=== PATIENT | female | born 1955 | race Caucasian/White ===

== ENCOUNTER 2020-03-08 10:14 | Emergency (ER) | payer OTHER, SELFPAY ==
--- NOTE | ~2020-03-08 | XR_ITS ---
EXAMINATION: XR shoulder LT min 2V EXAM DATE: 03/08/2020 10:45 INDICATION: Pain in joint, no injury, pain for 3days . TECHNIQUE: The following left shoulder projections obtained: frontal projection with internal rotatio n, frontal projection with external rotation, Grashey, and axillary (4+ views). There is no prior st udy for comparison. FINDINGS: No evidence of left shoulder rotator cuff calcific tendinosis. There is moderate acromio clavicular joint primary osteoarthritis. There are no acute fractures or dislocations identified. Th ere is no subcutaneous gas. The soft tissue is unremarkable. There are no radiopaque foreign vipul s. IMPRESSION: Moderate left acromioclavicular joint osteoarthritis. Reviewed, dictated and finalized at location A. OIL PUMP OPERATOR
--- NOTE | 2020-03-08 10:21 | ED.GENADULT ---
HPI - General Adult General Chief complaint: Extremity Problem,Nontraumatic Stated complaint: left shoulder pain Time Seen by Provider: 03/08/20 10:20 Source: patient Mode of arrival: ambulatory Limitations: no limitations History of Present Illness HPI narrative: 64 y/o female. PMH includes: HTN. Presents to [facility] clinic today with acute complaints of LT shoulder pain, ongoing for past 72 hours. She describes dull aching pain worsening with left shoulder movement or exertion. Intermittently radiates to LT scapula. No chest pain or dyspnea. This patient reports a 'normal stress test' just 1 year ago . No acute falls, trauma, or injury relayed. No tingling, numbness, or paraesthesia. No weakness. Pain is mildly improved with home OTC remedies and resting. No additional acute complaints relayed upon PE. Related Data Home Medications Medication Instructions Recorded Confirmed aspirin [Aspirin Low-Strength] 81 mg PO DAILY 03/08/20 03/08/20 olmesartan [Benicar] 20 mg PO DAILY 03/08/20 03/08/20 Allergies Allergy/AdvReac Type Severity Reaction Status Date / Time acetaminophen Allergy Rash Verified 03/08/20 10:58 [From Darvocet-N] propoxyphene Allergy Rash Verified 03/08/20 10:58 [From Darvocet-N] tramadol [From Ultram] Allergy Rash Verified 03/08/20 10:58 Review of Systems Review of Systems: Narrative: CONSTITUTIONAL: Denies fever, chills, sweats. EYES: Denies visual changes, redness, discharge. ENT: Denies rhinorrhea, congestion, sore throat, otalgia. CARDIOVASCULAR: Denies chest pain, palpitations, edema. RESPIRATORY: Denies dyspnea, wheezing, cough GASTROINTESTINAL: Denies abdominal pain, nausea, vomiting, diarrhea. GENITOURINARY: Denies dysuria, hematuria, abnormal discharge SKIN: Denies rash or itching. MUSCULOSKELETAL: Positive LT shoulder pain. Denies acute back pain, or myalgia. NEUROLOGIC: Denies numbness, or focal weakness. PSYCHIATRIC: Denies anxiety or depression. All systems reviewed & are unremarkable except as noted in HPI and below (HPI. ) PMFSH Comments At the time of my signature I agree with nursing past medical history, surgical, social, and family history. There is no relevant family history pertinent to the presenting complaint. Exam Narrative: Exam Narrative: GENERAL: This is a well-nourished, well-developed patient, in no apparent distress. HEAD: normocephalic, atraumatic. EYES: PERRL. Sclera clear/white. Vision is grossly intact. EARS: External ears normal, auditory canals clear and without drainage, TMs normal without perforation. Hearing grossly intact. NOSE: External nose normal with no obvious nasal discharge, nares without redness, no rhinorrhea. THROAT: Mucous membranes moist, posterior pharynx clear. NECK: Neck supple, non-tender without lymphadenopathy, masses or thyromegaly. CARDIOVASCULAR: Regular rate and rhythm without murmurs, gallops, or rubs. Pulses LUE are intact, strong. RESPIRATORY: Clear to auscultation. Breath sounds equal bilaterally. No wheezes, rales, or rhonchi. GASTROINTESTINAL: Abdomen soft, non-tender, nondistended. Bowel sounds are active. No hepato-splenomegaly, or palpable masses. No guarding. SKIN: warm, intact with no suspicious lesions or rash, good texture and turgor. NEURO: awake, alert, and oriented to person, place and time. There were no obvious focal neurologic abnormalities. Sensation LUE is preserved, all sites tested. Gait steady. EXTREMITIES: Normal range of motion LUE. No obvious deformity. No surface trauma, ecchymosis, or crepitus. No erythema, warmth, or swelling to palpitation. There is mils tenderness with palpation over the AC joint. Nontender to palpate over the clavicle, scapula, or humeral head. Nontender to palpations of the bicipital groove or soft tissue. Nontender to palpation of of the muscles. No pain or limitation with active or passive abduction/abduction, internal, external rotation, flexion/extension. Negative empty c
[2020-03-08 10:51] VITALS: BP 152/82; PULSE 82; RESP 20; TEMP 36; O2SAT 98
--- NOTE | 2020-03-08 11:06 | ECG_ITS ---
Measurements Intervals [place] Rate: 76 P: 67 MO: 166 QRS: -40 QRSD: 110 T: 30 QT: 364 QTc: 411 Interpretive Statements SINUS RHYTHM LEFT AXIS DEVIATION INTRAVENTRICULAR CONDUCTION DELAY DELAYED PRECORDIAL R/S TRANSITION BASELINE ARTIFACT- II, III, AVR, AVL, AVF BORDERLINE ECG Electronically Signed On 03-08-2020 11:14:06 HAND STRIPER by Jonathan Abdi D.O.
== END 2020-03-08 11:24 | disposition home or self-care (01) ==
PROVIDERS: Emergency Provider Nurse Practitioner Adult Health
DX: M19.012 Primary osteoarthritis, left shoulder (principal); I10 Essential (primary) hypertension; Z96.651 Presence of right artificial knee joint
CPT/HCPCS: 73030; 93005; 99203; G0463

== ENCOUNTER 2020-04-09 14:50 | Emergency (ER) | payer OTHER, SELFPAY ==
[2020-04-09 15:04] VITALS: BP 152/79; PULSE 80; RESP 20; TEMP 36.6; O2SAT 99
--- NOTE | 2020-04-09 15:09 | ED.DIZZY ---
HPI - Dizziness General Chief Complaint: Dizziness Stated Complaint: dizziness Source: patient Mode of arrival: ambulatory Limitations: no limitations History of Present Illness HPI Narrative: Patient is a 64-year-old female who presents complaining of dizziness this a.m. Patient reports awaking this morning feeling lightheaded and slightly dizzy. She reports same symptoms that she had when she was diagnosed with dehydration in the past. Patient also reporting dysuria. She reports drinking 2 bottles of wine around water and a bottle of Gatorade. She reports symptoms have resolved at this time. Patient here just to get checked. She denies all other complaints at this time. She denies known exposure to Covid. She denies fever, chest pain or shortness of breath. MD elicited complaint: lightheadedness Related Data Home Medications Medication Instructions Recorded Confirmed aspirin [Aspirin Low-Strength] 81 mg PO DAILY 03/08/20 04/09/20 olmesartan [Benicar] 20 mg PO DAILY 03/08/20 04/09/20 Allergies Allergy/AdvReac Type Severity Reaction Status Date / Time acetaminophen Allergy Rash Verified 03/08/20 10:58 [From Darvocet-N] propoxyphene Allergy Rash Verified 03/08/20 10:58 [From Darvocet-N] tramadol [From Ultram] Allergy Rash Verified 03/08/20 10:58 Review of Systems Review of Systems: Narrative: CONSTITUTIONAL: Denies fever, chills, or sweats. EYES: Denies visual changes, redness, or discharge. ENT: Denies rhinorrhea, congestion, sore throat, or otalgia. CARDIOVASCULAR: Denies chest pain, palpitations, or edema. RESPIRATORY: Denies cough or dyspnea. GASTROINTESTINAL: Denies abdominal pain, nausea, vomiting, or diarrhea. GENITOURINARY: reports dysuria SKIN: Denies rash or itching. MUSCULOSKELETAL: Denies back pain, joint pain, or myalgia. NEUROLOGIC: Denies headache, reports slight headache symptoms which have resolved PSYCHIATRIC: Denies anxiety or depression. [facility] Past Medical History Medical History (Updated 04/09/20 @ 15:23 by NEO Watters) HTN (hypertension) Surgical History Surgical History (Updated 04/09/20 @ 15:12 by NEO Watters) No significant past surgical history Family History Family History (Updated 04/09/20 @ 15:11 by NEO Watters) Other No significant family history Social History Social History (Updated 04/09/20 @ 15:12 by NEO Watters) Smoking status: Never smoker Tobacco type: cigarettes Alcohol intake: never Substance use: never Gender identity (if verbalized by the patient): Female Exam Narrative: Exam Narrative: GENERAL: Well-appearing, well-nourished, and in no acute distress. HEAD: Normocephalic, atraumatic. EYES: EOMI. No redness or drainage. ENT: Mucous membranes pink and moist. CHEST: No respiratory distress. HEART: Regular rate and rhythm. MUSCULOSKELETAL: No bony tenderness. EXTREMITIES: Normal range of motion. SKIN: Warm, dry, no rash. NEURO: No focal deficits. Alert and oriented x3. Gait steady. PSYCH: Normal affect. No signs of depression or anxiety. Course Vital Signs Vital signs: Vital Signs Temperature 36.6 C 04/09/20 15:04 Pulse Rate 80 04/09/20 15:04 Respiratory Rate 20 04/09/20 15:04 Blood Pressure 152/79 H 04/09/20 15:04 Pulse Oximetry 99 04/09/20 15:04 Temperature 36.6 C 04/09/20 15:04 Pulse Rate 80 04/09/20 15:04 Respiratory Rate 20 04/09/20 15:04 Blood Pressure 152/79 H 04/09/20 15:04 Pulse Oximetry 99 04/09/20 15:04 Critical Care Time Critical Care Time Critical Care Time: No Discharge Plan Discharge Clinical Impression: Intermittent lightheadedness UTI (urinary tract infection) Qualifiers: Urinary tract infection type: site unspecified Hematuria presence: without hematuria Qualified Code(s): N39.0 - Urinary tract infection, site not specified Patient Disposition: Home, Self-Care Condition: Stable Instructions
== END 2020-04-09 15:35 | disposition home or self-care (01) ==
PROVIDERS: Emergency Provider Nurse Practitioner
DX: R42 Dizziness and giddiness (principal); N39.0 Urinary tract infection, site not specified; I10 Essential (primary) hypertension
CPT/HCPCS: 81003; 87086; 99213; G0463

== ENCOUNTER 2021-11-29 13:20 | Emergency (ER) | payer OTHER, SELFPAY ==
[2021-11-29 13:36] VITALS: BP 152/89; PULSE 79; RESP 20; TEMP 36.2; O2SAT 97
--- NOTE | 2021-11-29 13:48 | ED.URI ---
HPI - URI/Sore Throat General Chief Complaint: Upper Respiratory Infection Stated Complaint: Coughing Time Seen by Provider: 11/29/21 13:48 Source: patient, RN notes reviewed and old records reviewed Mode of arrival: ambulatory Limitations: no limitations History of Present Illness HPI Narrative: 65-year-old female who presents to [facility] with complaints of 1 week duration of productive cough with sinus drainage also. Patient denies any known fevers, chills, or sweats, denies any body aches. Patient was diagnosed with polycythemia vera last year and this year she was diagnosed with Parkinsonism and does have a cane to assist with ambulation. Patient reports that she has not taken anything OTC because she is concerned of any OTC medications interacting with her medication. Patient denies any shortness of breath or any noted wheezing, no tachypnea noted,loose sounding cough noted. Patient has been vaccinated for COVID did not have Booster of flu shot. MD elicited complaint: cough, rhinorrhea and nasal congestion Pertinent past history: immunosuppression Onset (ago): week(s) (1) Description of mucous: yellow and green Able to tolerate fluids by mouth: Yes Associated symptoms: rhinorrhea, nasal congestion, sore throat and cough (productive) Treatments prior to arrival: none Related Data Home Medications Medication Instructions Recorded Confirmed aspirin 81 mg chewable tablet 81 mg PO DAILY 03/08/20 11/29/21 carbidopa 25 mg-levodopa 100 mg 1.5 tablet TID 11/29/21 11/29/21 tablet losartan 50 mg tablet 50 mg DAILY 11/29/21 11/29/21 mirabegron 25 mg tablet,extended 25 mg PO DAILY 11/29/21 11/29/21 release 24 hr (Myrbetriq) paroxetine HCl 10 mg tablet 5 mg PO DAILY 11/29/21 11/29/21 ruxolitinib 5 mg tablet (Jakafi) 5 mg DAILY 11/29/21 11/29/21 Allergies Allergy/AdvReac Type Severity Reaction Status Date / Time codeine Allergy Rash Verified 11/29/21 13:42 propoxyphene Allergy Rash Verified 11/29/21 13:42 [From Darvocet-N] tramadol [From Ultram] Allergy Rash Verified 11/29/21 13:42 Review of Systems Review of Systems: CONSTITUTIONAL: Denies fever, chills, or sweats. EYES: Denies visual changes, redness, or discharge. ENT: Positive for rhinorrhea, congestion, mild sore throat, no otalgia. CARDIOVASCULAR: Denies chest pain, palpitations, or edema. RESPIRATORY: Positive for productive cough denies dyspnea. GASTROINTESTINAL: Denies abdominal pain, nausea, vomiting, or diarrhea. GENITOURINARY: Denies dysuria or hematuria. SKIN: Denies rash or itching. MUSCULOSKELETAL: Denies back pain, joint pain, or myalgia. NEUROLOGIC: Denies headache, numbness, or weakness. PSYCHIATRIC: Positive for anxiety or depression. All systems reviewed & are unremarkable except as noted in HPI and below PMFSH Past Medical History Medical History (Updated 11/29/21 @ 14:11 by Mora Mireles NP) HTN (hypertension) Parkinsonism Polycythemia vera Surgical History Surgical History (Updated 11/29/21 @ 14:28 by Mora Mireles NP) History of right knee joint replacement Family History Family History (Updated 04/09/20 @ 15:11 by Jessica Benavides, WIRE REPAIRER) Other No significant family history Social History Social History (Updated 11/29/21 @ 14:10 by Mora Mireles NP) Social History: second hand tobacco exposure spouse Smoking status: Never smoker Tobacco type: cigarettes Alcohol intake: never Substance use: never Living arrangements: with family Gender identity (if verbalized by the patient): Female Comments At time of signature, agree with nursing past medical, surgical, social and family history. There is no relevant family history pertinent to the presenting complaint Exam Narrative: GENERAL: Frail-appearing, well-nourished, and in no acute distress. HEAD: Normocephalic, atraumatic. EYES: PERRLA and EOMI. ENT: Nares with some redness with clear rhinorrhea no epistaxis. Mucous membranes moist.TM's
== END 2021-11-29 14:21 | disposition home or self-care (01) ==
PROVIDERS: Emergency Provider Registered Nurse
DX: J06.9 Acute upper respiratory infection, unspecified (principal); I10 Essential (primary) hypertension; D45 Polycythemia vera; G20 Parkinson's disease; Z96.651 Presence of right artificial knee joint
CPT/HCPCS: 99213; G0463

== ENCOUNTER 2024-03-31 14:42 | Outpatient (CLI) | payer OTHER, SELFPAY ==
--- NOTE | ~2024-03-31 | XR_ITS ---
XR abdomen/kub 1V Ordering provider: Joe Joyner History: . KIDNEY STONE . Comparison: None. FINDINGS: BOWEL: Fecal material seen in the colon suggestive of constipation. Nonobstructive bowel gas pattern. ORGANOMEGALY: None. SIGNIFICANT PATHOLOGIC CALCIFICATIONS: None. OTHER: No free air is seen under the diaphragm. Levoscoliosis. IMPRESSION: NO ACUTE ABDOMINAL FINDINGS. Constipation. Reviewed, dictated and finalized at location A. INTELLIGENCE OFFICER
== END 2024-03-31 14:43 | disposition home or self-care (01) ==
DX: N20.0 Calculus of kidney (principal); K59.00 Constipation, unspecified
CPT/HCPCS: 74018

== ENCOUNTER 2024-04-25 12:32 | Outpatient (CLI) | payer OTHER, SELFPAY ==
--- NOTE | ~2024-04-25 | CT_ITS ---
EXAMINATION: CT abdomen pelvis wo con DATE: 04/25/2024 13:00 INDICATION: Kidney stone. TECHNIQUE: Computed tomography (CT) of the abdomen and pelvis was performed without intravenous contr ast. Automated exposure control and iterative reconstruction technique were employed. The dose-length product was 352.46 mGy-cm. COMPARISON: None. FINDINGS: The visualized portions of the lung bases demonstrate minimal atelectasis on the left. No p leural effusion. The heart size is normal. No pericardial effusion. There is moderate splenomegaly. T here are peripheral splenic calcifications, likely from old trauma. The liver, gallbladder, pancreas, adrenal glands, and right kidney are normal. There is a 9 mm hemorrhagic cyst in left kidney. There is no urolithiasis. There are no dilated loops of bowel. The appendix is not visualized. There are no pathologically enlarged lymph nodes. There is no free intraperitoneal fluid. There is lumbar levosco liosis and severe lower lumbar spondylosis. There is mild chronic anterior wedging of multiple thorac ic vertebral bodies. There is severe thoracic spondylosis. IMPRESSION: 1. No urolithiasis. 2. Moderate splenomegaly. Reviewed, dictated and finalized at location B. TRONIC CONSOLE DISPLAY OPERATOR
== END 2024-04-25 12:33 | disposition home or self-care (01) ==
LOC: MICIMG 12:34
DX: N20.0 Calculus of kidney (principal); R16.1 Splenomegaly, not elsewhere classified
CPT/HCPCS: 74176

== ENCOUNTER 2024-10-11 09:24 | Outpatient (CLI) | payer OTHER, SELFPAY ==
--- NOTE | 2024-10-11 | ECHO_ITS ---
Patient Info Name: Eliana Avalos Age: 68 years : 1955 Gender: Female Ht: 65 in Wt: 161 lbs BSA: 1.85 m2 HR: 78 bpm BP: 140 / 97 mmHg Technical Quality: Poor Exam Date: 10/11/2024 9:55 AM Patient Status: O Admit Date: 10/11/2024 Exam Type: CA echo dop color flow w con Complete two-dimensional, color flow and Doppler transthoracic echocardiogram is performed with contrast to opacify the left ventricle and to improve the deliniation of the left ventricle endocardial borders. Pension Administrator: Reyna Enamorado Contrast/Agitated Saline Contrast/Ag. Saline: Definity Amount: 2.00 ml Administered By: Reyna Enamorado Existing IV Access: No New IV Access: Left and Outer Forearm Site Condition: IV removed Reason for Poor Study: poor echocardiographic windows Summary 1. Technically very difficult study with very poor and limited acoustic windows. 2. The left ventricle appears to be normal size with moderately reduced systolic function. 3. The right ventricle is normal in size and systolic function. 4. The valves are poorly visualized. Left Ventricle The left ventricle is normal in size with moderately reduced systolic function. The left ventricular ejection fraction is visually estimated to be 35-40%. Right Ventricle The right ventricle is normal in size and systolic function. Left Atria The left atrium is normal size. Right Atria The right atrium is normal size. Atrial Septum The atrial septum is not well visualized. Aortic Valve The aortic valve is not well visualized. There does not appear to be any hemodynamically significant aortic stenosis by echo Doppler parameters. Pulmonic Valve The pulmonic valve is not well visualized. Mitral Valve The mitral valve is sclerotic but opens well. There is no mitral regurgitation. Tricuspid Valve The tricuspid valve is not well visualized. Pericardium/Pleural Pericardium is normal in appearance with no evidence for significant pericardial effusion. Inferior Vena Cava Inferior vena cava is not well visualized. Aorta The aortic root at the level of the sinus of Valsalva measures 2.6 cm in diameter. Left Ventricular Outflow Tract Name Value Normal LVOT 2D LVOT Diameter 1.6 cm LVOT Doppler LVOT Peak Velocity 114 cm/s LVOT Peak Gradient 5 mmHg LVOT Mean Gradient 3 mmHg LVOT VTI 25 cm LVOT Stroke Volume 50 ml LVOT CO 4.0 l/min LVOT CI 2.1 l/min/m2 Pulmonic Valve Name Value Normal RVOT Doppler RVOT Peak Velocity 80 cm/s RVOT Peak Gradient 3 mmHg PV Doppler PV Peak Velocity 105 cm/s PV Peak Gradient 4 mmHg Mitral Valve Name Value Normal MV Doppler MV Peak Gradient 4 mmHg MV Mean Gradient 2 mmHg MV Area (Cont Eq VTI) 2.0 cm2 MV Diastolic Function MV E Peak Velocity 74 cm/s MV A Peak Velocity 93 cm/s MV E/A 0.8 MV Decel Time (PW) 282 ms MV Annular TDI MV E/e' (Septal) 13.1 MV E/e' (Lateral) 7.7 MV E/e' (Average) 10.4 Aortic Valve Name Value Normal AV Doppler AV Peak Velocity 150 cm/s AV Peak Gradient 9 mmHg AV Area (Cont Eq Augie) 1.6 cm2 AV DI (Augie) 0.76 AV Regurgitation 2D LVOT Area 2.1 cm2 Ventricles Name Value Normal LV Dimensions 2D/MM IVS Diastolic Thickness (2D) 1.0 cm 0.6-1.0 LVID Diastole (2D) 4.0 cm 3.8-5.2 LVIW Diastolic Thickness (2D) 1.2 cm 0.6-0.9 LVID Systole (2D) 3.1 cm 2.2-3.5 LVOT Diameter 1.6 cm LV Mass (2D Cubed) 144.76 g 67.00-162.00 LV Mass Index (2D Cubed) 78 g/m2 43-95 Relative Wall Thickness (2D) 0.58 <=0.42 LV Fractional Shortening/Ejection Fraction 2D/MM LV Fractional Shortening (2D) 23 % 27-45 LV EF (2D Teichholz) 47 % LV Diastolic Volume (4C MOD) 77 ml LV EF (4C MOD) 32 % LV Diastolic Volume (2C MOD) 79 ml LV EF (2C MOD) 51 % LV Diastolic Volume (BP MOD) 81 ml 46-106 LV Diastolic Volume Index (BP MOD) 44 ml/m2 29-61 LV Systolic Volume (BP MOD) 45 ml 14-42 LV Systolic Volume Index (BP MOD) 24 ml/m2 8-24 LV EF (BP MOD) 45 % 54-74 LV Diastolic Length (4C) 8.2 cm LV Systolic Length (4C) 7.2 cm LV Stroke Volume (4C MOD) 25 ml Atria Name Value Normal LA Dimensions LA Volume (4C A-L) 41 ml LA Volume (BP A-L) 50 ml RA Dimensions RA Area (4C) 9.8 cm2 <=18.0 Report Signatures
--- OUTSIDE RECORDS SUMMARY | 2024-10-11 09:30 | XMS_ITS | Encounter Summary ---
Author Organization [facility] Address 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 Gender Identity Not on file Sexual Orientation Not on file documented as of this encounter Plan of Treatment Upcoming Encounters Date Type Department Care Team (Late Contact Info) Description 10/27/2024 1:00 PM CDT Office Visit [facility] Oncology and Hematology [facility] [place] [address] [facility] [address] [place] [address] Tiffani Milton, LUMP RECEIVER [address] [facility] [address] [place] [address] 01/23/2025 9:15 AM CDT Office Visit [facility] Neurology [address] [facility] [address] [facility] [address] [place] [address] [place] [address] [facility] [address] [place] [address] documented as of this encounter Visit Diagnoses Diagnosis Gynecological examination- Primary documented in this encounter Care Teams Corn Miller Relationship Specialty [place] [address] [facility] [address] [place] [address] PCP - General Family Practice 06/26/20 documented as of this encounter
--- OUTSIDE RECORDS SUMMARY | 2024-10-11 09:30 | XMS_ITS | Encounter Summary ---
Author Organization [facility] Address 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 Gender Identity Not on file Sexual Orientation Not on file documented as of this encounter Plan of Treatment Upcoming Encounters Date Type Department Care Team (Late st Contact Info) Description 10/27/2024 1:00 PM CDT Office Visit [facility] Oncology and Hematology [facility] [address] [address] Tiffani Milton, PASTRY COOK [address] [facility] [address] [facility] [place] [address] 01/23/2025 9:15 AM CDT Office Visit [facility] Neurology [address] [facility] [place] [address] [address] [place] [address] [address] documented as of this encounter Visit Diagnoses Diagnosis Gynecological examination- Primary documented in this encounter Care Teams Qual Field Manager Relationship Specialty Start [place] [address] [address] [facility] [address] [place] [address] PCP - General Family Practice 06/26/20 documented as of this encounter
--- OUTSIDE RECORDS SUMMARY | 2024-10-11 09:30 | XMS_ITS | Clinical Summary ---
Author Organization [employer] [address] [facility] Address [address] [place] [address] Care Team Providers Care Termite Treater Helper Name Role Phone Jitendra Puri MD, Vikas Landin Primary Care Provider [phone] Allergies Active Allergy Reactions Criticality Noted Date Comments Codeine Rash Low 12/19/2016 Ibuprofen Unknown 08/01/2021 Raises blood pressure Propoxyphene N-Acetaminophen Rash Low 12/19/2016 Tramadol Unknown,Rash Low 12/19/2016 Medications aspirin (ECOTRIN EC) 81 mg Tablet, Delayed Release (E.C.) Take 81 mg by mouth daily at bedtime. 9 Active acetaminophen (TYLENOL EXTRA STRENGTH ORAL) Take 500 mg by mouth 1 time daily as needed. 1 tablet morning 1 tablet afternoon Active lactose-reduced food (ENSURE ORAL) Take 2 Each by mouth daily. Active mirabegron (MYRBETRIQ) 25 mg Extended Release 24 hour tablet Take 25 mg by mouth every 24 hours. 2 Active pantoprazole sodium (PANTOPRAZOLE ORAL) Take by mouth daily. Active amantadine HCL (SYMMETREL) 100 mg CapsuleIndications :Parkinson's disease with dyskinesia and fluctuating manifestations (CMS/HCC) Take 1 Capsule (100 mg) by mouth 2 times daily. 180 Capsule 3 4 Active ruxolitinib 5 mg tabletIndications: Polycythemia vera (CMS/HCC) Take 1 Tablet (5 mg) by mouth 2 times daily. 60 Tablet 11 5 Active folic acid (FOLVITE) 1 mg tablet TAKE 1 TABLET BY MOUTH EVERY DAY 90 Tablet 1 5 Active losartan (COZAAR) 25 mg tablet Take 25 mg by mouth daily. Active cholecalciferol, vitamin D3, 5,000 unit Take 1 Tablet by mouth daily. 4 Active fluorouraciL (CARAC) 0.5 % Cream Apply to affected area daily. Active ferrous sulfate 325 mg (65 mg iron) tabletIndications: Iron deficiency anemia due to chronic blood loss Take 1 Tablet (325 mg) by mouth daily. 90 Tablet 3 5 Active carbidopa-levodopa (SINEMET) 25-100 mg tabletIndications: PD (Parkinson's disease) ([facility]/HCC) TAKE 2 TABLETS BY MOUTH 4 TIMES DAILY. 720 Tablet 3 5 Active nitrofurantoin (MACROBID) 100 mg capsule Take 100 mg by mouth 2 times daily. Active Active Problems No known active problems Encounters Date Type Department Care Team Description 08/31/2024 11:35 AM CDT Ancillary Procedure [address] [id number] Vikas Ham Jr., MD SOB (shortness of breath) 08/24/2024 11:00 AM CDT Office Visit [facility] [address] [facility] [address] [place] [phone] Kurtis Colin MD Polycythemia vera ([facility]) (Primary Dx); Iron deficiency anemia due to chronic blood loss; Leukocytosis, unspecified type; Acquired hemolytic anemia ([facility]) 08/24/2024 External Device Data STL ABSTRACTION Provider, Abstract 08/23/2024 External Device Data ST[facility] ABSTRACTION Provider, Abstract 08/21/2024 [facility] [address] [facility] [address] [address] Tyrone Patel MD PD (Parkinson's disease) ([facility]/HCC) (Primary Dx) 08/19/2024 Telephone [facility] Hematology [facility] [address] [facility] [address] [place] [phone] Kurtis Colin MD Nurse Triage 07/27/2024 11:20 AM CDT Office Visit [facility] Oncology and Hematology [facility] [address] [facility] [address] [place] [address] Kurtis Colin MD Polycythemia vera (CMS/HCC) (Primary Dx); Iron deficiency anemia due to chronic blood loss; Leukocytosis, unspecified type; Acquired hemolytic anemia (CMS/HCC); Protein-calorie malnutrition, mild 07/27/2024 Telephone [facility] [address] [place] [address] Follow Up 07/18/2024 10:15 AM CDT Office Visit [facility] Neurology [address] [facility] [address] [facility] [address] [place] [address] Tyrone Patel MD Parkinson's disease with dyskinesia and fluctuating manifestations (CMS/HCC) (Primary Dx); RBD (REM behavioral disorder); Depression, unspecified depression type; Polycythemia vera (CMS/HCC); Essential hypertension, benign from Last 3 Months Family History Medical History Relation Name Comments Heart Disease Brother 1 Hypertension Brother 1 Cancer Brother 2 Heart Disease Brother 3 Heart Disease Brother 4 Blood Disorder Father Hypertension Father Diabetes Mother Heart Disease Mother Colon Cancer Sister 1 Hypertension Sister 1 Heart Disease Sister 2 Hypertension Sister 2 Relation Name Status Comments Brother 1 Alive Brother 2 Brother 3 Brother 4 Alive Father Mother Sister 1 Sister 2 Social History Tobacco Use Types Packs/Day Years Used Date Smoking Tobacco: Never Smokeless Tobacco: Never Tobacco Cessation:Counseling Given: Not Answered Alcohol Use Standard Drinks/Week Comments Never 0 (1 standard drink = 0.6 oz pur e alcohol) Feeling Safe Answer Date Recorded Are you in a relationship wi th someone who hurts you emotionally and/or physically? 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 Gender Identity Not on file Sexual Orientation Not on file Last Filed Vital Signs Vital Sign Reading Time Taken Comments Blood Pressure 174/100 08/24/2024 11:21 AM CDT Pulse 93 08/24/2024 11:21 AM CDT Temperature 36 C (96.8 F) 08/24/2024 11:16 AM CDT Respiratory Rate 16 08/24/2024 11:1 6 AM CDT Oxygen Saturation 95% 08/24/2024 11: 16 AM CDT Inhaled Oxygen Concentration - - Weight 75.2 kg (165 lb 11.2 oz) 025 11:16 AM CDT Height 165.1 cm (5' 5) 08/24/2024 11:1 6 AM CDT Body Mass Index 27.57 08/24/2024 11:16 AM CDT Plan of Treatment Upcoming Encounters Date Type Department Care Team (Late st Contact Info) Description 10/27/2024 1:00 PM CDT Office Visit [facility] Oncology and Hematology [facility] [address] [id number] [place] [address] Tiffani Milton, NURSE OUTREACH CASE MANAGER [address] [facility] [address] [facility] [place] [address] 01/23/2025 9:15 AM CDT Office Visit [facility] Neurology [address] [facility] [address] [address] [place] [address] [address] Health Maintenance Due Date Last Done Comments Pre-Diabetes and Diabetes Screening 1955 DTAP/TDAP/TD VACCINES (1 - Tdap) 1976 COLORECTAL SCREENING 2002 Colorectal Cancer Screening 2002 FIT-DNA Q 3 years 2002 FIT/FOBT Q 1 year 2002 Flex Sig/CT Colonography Q 5 years 2002 PNEUMOCOCCAL VACCINE 50+ YEA RS (1 of 1 - PCV) 12/30/2007 ZOSTER VACCINE (1 of 2) 12/30/2007 BREAST CANCER SCREENING 09/07/2021 09/08/19 21, 09/07/2020, 02/08/2019, Additional history exists OSTEOPOROSIS SCREENING 2022 INFLUENZA VACCINE (#1) 2024 RSV VACCINE (60+ or ) (1 - 1-dose 75+ series) 2032 Procedures Procedure Name Priority Date/Time Associated Diagnosis Comments XR CHEST PA AND LATERAL 2 VW Routine 08/31/2024 11:39 AM CDT SOB (shortness of breath) FERRITIN Routine 08/17/2024 9:10 AM CDT Iron deficiency anemia due to chronic blood loss Polycythemia vera (CMS/HCC) Leukocytosis, unspecified type Acquired hemolytic anemia (CMS/HCC) Protein-calorie malnutrition, mild IRON, TIBC, AND PERCENT SATURATION Routine 08/17/2024 9:10 AM CDT Iron deficiency anemia due to chronic blood loss Polycythemia vera (CMS/HCC) Leukocytosis, unspecified type Acquired hemolytic anemia (CMS/HCC) Protein-calorie malnutrition, mild LACTATE DEHYDROGENASE Routine 08/17/2024 9:10 AM CDT Iron deficiency anemia due to chronic blood loss Polycythemia vera (CMS/HCC) Leukocytosis, unspecified type Acquired hemolytic anemia (CMS/HCC) Protein-calorie malnutrition, mild HAPTOGLOBIN Routine 08/17/2024 9:10 AM CDT Iron deficiency anemia due to chronic blood loss Polycythemia vera (CMS/HCC) Leukocytosis, unspecified type Acquired hemolytic anemia (CMS/HCC) Protein-calorie malnutrition, mild COMPREHENSIVE METABOLIC PANEL Routine 08/17/2024 9:10 AM CDT Iron deficiency anemia due to chronic blood loss Polycythemia vera (CMS/HCC) Leukocytosis, unspecified type Acquired hemolytic anemia (CMS/HCC) Protein-calorie malnutrition, mild CBC WITH DIFFERENTIAL Routine 08/17/2024 9:10 AM CDT Iron deficiency anemia due to chronic blood loss Polycythemia vera (CMS/HCC) Leukocytosis, unspecified type Acquired hemolytic anemia (CMS/HCC) Protein-calorie malnutrition, mild COMPREHENSIVE METABOLIC PANEL Routine 07/19/2024 2:03 PM CDT VITAMIN B12 AND FOLATE Routine 2:03 PM CDT Acquired hemolytic anemia (CMS/HCC) Polycythemia vera (CMS/HCC) FERRITIN Routine 07/19/2024 2:03 PM CDT Acquired hemolytic anemia (CMS/HCC) Polycythemia vera (CMS/HCC) IRON, TIBC, AND PERCENT SATURATION Routine 07/19/2024 2:03 PM CDT Acquired hemolytic anemia (CMS/HCC) Polycythemia vera (CMS/HCC) HAPTOGLOBIN Routine 07/19/2024 2:03 PM CDT Acquired hemolytic anemia (CMS/HCC) LACTATE DEHYDROGENASE Routine 07/19/2024 2:03 PM CDT Acquired hemolytic anemia (CMS/HCC) CBC WITH DIFFERENTIAL Routine 07/19/2024 2:03 PM CDT Acquired hemolytic anemia (CMS/HCC) Polycythemia vera (CMS/HCC) Leukocytosis, unspecified type MAMMO SCREEN BILAT W OR WO CAD Routine 09/07/2020 12:00 PM CDT Encounter for screening mammogram for malignant neoplasm of breast from Last 3 Months or Most Recently Relevant to Health Maintenance Results * XR CHEST PA AND LATERAL 2 VW (08/31/2024 11:39 AM CDT) Anatomical Region Laterality Modality Chest Computed Radiogr aphy 08/31/2024 11:4 1 AM CDT Impressions 08/31/2024 12:01 PM CDT IMPRESSION: 1. No acute cardiopulmonary process. Narrative 08/31/2024 12:01 PM CDT EXAM: XR CHEST PA AND LATERAL 2 VW DATE: 08/31/2024 HISTORY: SOB (shortness of breath) COMPARISON: Chest radiograph from December 31, 2007. FINDINGS: Calcified granulomas are similar to the prior study. No focal consolidation. The Cardiomediastinal silhouette, and bony thorax are normal. Procedure Note Bernabe Alexandra MD - 08/31/2024 EXAM: XR CHEST PA AND LATERAL 2 VW DATE: 08/31/2024 HISTORY: SOB (shortness of breath) COMPARISON: Chest radiograph from December 31, 2007. FINDINGS: Calcified granulomas are similar to the prior study. No focal consolidation. The Cardiomediastinal silhouette, and bony thorax are normal. IMPRESSION: 1. No acute cardiopulmonary process. us Vikas Ham Jr., MD DIAGNOSTIC IMAGING ORDERA BLES Final Result * (ABNORMAL) IRON, TIBC, AND PERCENT SATURATION (08/17/2024 9:10 AM CDT) Only the most recent of2 resultswithin the time period is included. Pathologist [facility] IRON 48 45 - 160 mcg/dL [facility] TIBC 328 250 - 450 mcg/dL (calc) [facility] IRON % SATURATION 15(L) 16 - 45 % (calc) [facility] Comment: Test Performed at: [facility] [address] [place] [address] Alexandra Jaramillo MD Blood 08/17/2024 9:10 AM CDT 08/17/2024 9:10 AM CDT Kurtis Colin MD CHEMISTRY ORDERABLES Final Res ult [facility] [phone] [facility] [address] * (ABNORMAL) CBC WITH DIFFERENTIAL (08/17/2024 9:10 AM CDT) Only the most recent of2 resultswithin the time period is included. WBC 20.1(H) 3.8 - 10.8 Thousand/ uL [facility] RBC 3.82 3.80 - 5.10 Million/u L [facility] HEMOGLOBIN 9.4(L) 11.7 - 15.5 g/dL [facility] HEMATOCRIT 32.2(L) 35.0 - 45.0 % [facility] MCV 84.3 80.0 - 100.0 fL [facility] MCH 24.6(L) 27.0 - 33.0 pg [facility] MCHC 29.2(L) 32.0 - 36.0 g/dL [facility] Comment: For adults, a slight decrease in the calculated MCHC value (in the range of 30 to 32 g/dL) is most likely not clinically significant; however, it should be interpreted with caution in correlation with other red cell parameters and the patient's clinical condition. RDW 22.1(H) 11.0 - 15.0 % [facility] PLATELETS 146 140 - 400 Thousand/ uL [facility] MPV 7.5 - 12.5 fL [facility] Comment: Due to platelet or RBC variability in size or shape the result cannot be reported accurately. NEUTROPHIL ABSOLUTE 13,869(H) 1,500 - 7,800 cells/uL [facility] BANDS ABSOLUTE 2010(H) 0 - 750 cells/uL [facility] METAMYELOCYTE ABSOLUTE 1005(H) 0 cells/uL [facility] MYELOCYTE ABSOLUTE 603(H) 0 cells/uL [facility] PROMYELOCYTE ABSOLUTE 201(H) 0 cells/uL [facility] LYMPHOCYTE ABSOLUTE 1,005 850 - 3,900 cells/uL [facility] MONOCYTE ABSOLUTE 1,206(H) 200 - 950 cells/uL [facility] EOSINOPHIL ABSOLUTE 0(L) 15 - 500 cells/uL [facility] BASOPHILS ABSOLUTE 0 0 - 200 cells/uL [facility] BLASTS ABSOLUTE 201(H) 0 cells/uL [facility] NEUTROPHIL 69 % [facility] BANDS 10 % [facility] METAMYELOCYTE 5(H) % [facility] MYELOCYTES 3(H) % [facility] PROMYELOCYTE 1(H) % [facility] LYMPHOCYTES 5 % [facility] MONOCYTE 6 % [facility] EOSINOPHILS 0 % [facility] BASOPHILS 0 % [facility] BLAST 1(H) % [facility] COMMENT HEMATOLOGY [facility] Comment: Anisocytosis 2 + Microcytosis 1 + Hypochromasia 1 + Polychromasia 1 + Ovalocytes 1 + Crenated red blood cells 1 + The smear has been manually reviewed and the manual differential has been reported. This differential has been reviewed by the floating labor gang supervisor, senior assistant manager or designee. FASTING:NO FASTING: NO Test Performed at: [facility] [address] Alexandra Jaramillo MD Blood 08/17/2024 9:10 AM CDT 08/17/2024 9:10 AM CDT Kurtis Colin MD HEMATOLOGY ORDERABLES Final Re sult Performing Organization Address [facility] Co de Phone Number [facility] [phone] [facility] [employer] [address] * (ABNORMAL) LACTATE DEHYDROGENASE (08/17/2024 9:10 AM CDT) Only the most recent of2 resultswithin the time period is included. Pathologist [facility] LD (LACTATE DEHYDROGENASE) 955(H) 120 - 250 U/L [facility] Comment: Test Performed at: [facility] [address] Alexandra Jaramillo MD Blood 08/17/2024 9:10 AM CDT 08/17/2024 9:10 AM CDT Kurtis Colin MD CHEMISTRY ORDERABLES Final Res ult Performing Organization Address [facility]/ZIP Co de Phone Number [facility] [phone] [facility] [employer] [address] * (ABNORMAL) HAPTOGLOBIN (08/17/2024 9:10 AM CDT) Only the most recent of2 resultswithin the time period is included. Pathologist [facility] HAPTOGLOBIN 30(L) 43 - 212 mg/dL [facility] Comment: FASTING:NO FASTING: NO Test Performed at: [facility] [address] Alexandra Jaramillo MD Blood 08/17/2024 9:10 AM CDT 08/17/2024 9:10 AM CDT Kurtis Colin MD CHEMISTRY ORDERABLES Final Res ult Performing Organization Address [facility]/ZIP Co de Phone Number [facility] [phone] [facility] [employer] [address] * FERRITIN (08/17/2024 9:10 AM CDT) Only the most recent of2 resultswithin the time period is included. [facility] FERRITIN 102 16 - 288 ng/mL [facility] Comment: FASTING:NO FASTING: NO Test Performed at: [facility] [address] Alexandra Jaramillo MD Blood 08/17/2024 9:10 AM CDT 08/17/2024 9:10 AM CDT us Kurtis Colin MD CHEMISTRY ORDERABLES Final Res ult Performing Organization Address [facility]/ZIP Co de Phone Number [facility] [phone] [facility] [employer] [facility] [address] * (ABNORMAL) COMPREHENSIVE METABOLIC PANEL (08/17/2024 9:10 AM CDT) Only the most recent of2 resultswithin the time period is included. [facility] GLUCOSE 79 65 - 139 mg/dL [facility] Comment: Non-fasting reference interval BUN 17 7 - 25 mg/dL [facility] CREATININE 0.78 0.50 - 1.05 mg/dL [facility] GFR 84 > OR = 60 mL/min/1. 73m2 [facility] BUN/CREAT RATIO SEE NOTE: 6 - 22 (calc) [facility] Comment: Not Reported: BUN and Creatinine are within reference range. SODIUM 141 135 - 146 mmol/L [facility] POTASSIUM 3.6 3.5 - 5.3 mmol/L [facility] CHLORIDE 102 98 - 110 mmol/L [facility] CO2 33(H) 20 - 32 mmol/L [facility] CALCIUM 8.8 8.6 - 10.4 mg/dL [facility] TOTAL PROTEIN 7.0 6.1 - 8.1 g/dL [facility] ALBUMIN 4.4 3.6 - 5.1 g/dL [facility] GLOBULIN 2.6 1.9 - 3.7 g/dL (calc) [facility] ALBUMIN/GLOBULIN RATIO 1.7 1.0 - 2.5 (calc) [facility] BILIRUBIN TOTAL 0.9 0.2 - 1.2 mg/dL [facility] ALKALINE PHOSPHATASE 109 37 - 153 U/L [facility] AST 26 10 - 35 U/L [facility] ALT 8 6 - 29 U/L [facility] Comment: Test Performed at: [employer] [facility] [address] Alexandra Jaramillo MD Blood 08/17/2024 9:10 AM CDT 08/17/2024 9:10 AM CDT us Kurtis Colin MD CHEMISTRY ORDERABLES Final Res ult [facility] [phone] [facility] [address] * VITAMIN B12 AND FOLATE (07/19/2024 2:03 PM CDT) VITAMIN B12 702 200 - 1100 pg/mL [facility] FOLATE, SERUM >24.0 ng/mL [facility] Comment: Reference Range Low: <3.4 Borderline: 3.4-5.4 Normal: >5.4 Test Performed at: [facility] [address] [address] Alexandra Jaramillo MD Blood 07/19/2024 2:03 PM CDT 07/19/2024 2:03 PM CDT Tiffani Milton NURSE OUTREACH CASE MANAGER CHEMISTRY ORDERAB LES Final Result [facility] [phone] [facility] [employer] [facility] [address] [address] * MAMMO SCREEN BILAT W OR WO CAD (09/07/2020 12:00 PM CDT) Anatomical Region Laterality Modality Breast Bilateral Mammography Narrative 09/10/2020 7:24 AM CDT Bilateral digital screening mammogram with computer assisted diagnosis History: Annual screening exam. Findings: A bilateral screening mammogram was performed. There are no comparison studies. The breast parenchyma is almost completely fatty replaced. No new masses, suspicious calcifications, or areas of asymmetry or distortion are identified. CAD was utilized. Impression: Negative screening mammogram. Recommendation: Routine annual follow-up Overall Assessment: Birads Category 1: Negative aRvinder Thakur MD MAMMO ORDERABLES Final Result from Last 3 Months or Most Recently Relevant to Health Maintenance Insurance [facility] [place] Address: [address] [address] [employer] Medicare Part D [employer] MCR Care Teams Termite Treater Helper Relationship Specialty [place] [address] [address] [facility] [address] [place] [address] PCP - General Family Practice 06/26/20
--- OUTSIDE RECORDS SUMMARY | 2024-10-11 09:30 | XMS_ITS | Clinical Summary ---
Author Organization [facility] Address [address] [place] [address] Care Team Providers Care Personal Care Assistant Name Role Phone Vikas Ham MD Primary Care Provider [phone] Kurtis Colin MD Unavailable [phone] Tyrone Greenwood MD Unavailable [phone] Joe Joyner MD Unavailable [phone] Sonia Larson DPM Unavailable [phone] Ravinder Thakur MD Unavailable Allergies Active Allergy Reactions Criticality Noted Date Comments Codeine Rash Low 01/14/2019 Ibuprofen Other (see comment) 08/01/2021 Raises blood pressure Tramadol Rash Low 08/01/2021 Medications aspirin 81 MG tablet Take 1 tablet (81 mg total) by mouth daily. 30 tablet 9 Active nitroglycerin 0.[address] 1 tablet (0.4 mg total) under the tongue every 5 (five) minutes as needed for Chest Pain. 60 tablet 9 Active ruxolitinib (JAKAFI) 5 MG tablet Take by mouth 2 (two) times daily. Active mirabegron ER 25 MG 24 hr tablet Take 1 tablet (25 mg total) by mouth daily. Active carbidopa-levodopa (SINEMET) 25-100 MG tablet Take 1.5 tablets by mouth 4 (four) times daily. Active amantadine (SYMMETREL) 100 MG capsule Take 1 capsule (100 mg total) by mouth 2 (two) times daily. Active acetaminophen (TYLENOL) 500 MG tablet Take 1 tablet (500 mg total) by mouth daily as needed for Pain. Active pantoprazole EC (PROTONIX) 40 MG tablet Take 1 tablet (40 mg total) by mouth daily. 30 tablet 1 4 Active losartan (COZAAR) 25 MG tablet Take 1 tablet (25 mg total) by mouth daily. 30 tablet 4 Active clonazePAM (KLONOPIN) 0.25 MG disintegrating tablet Take 1 tablet (0.25 mg total) by mouth nightly. Active folic acid (FOLVITE) 1 MG tablet Take 1 tablet (1 mg total) by mouth daily. Active allopurinol (ZYLOPRIM) 100 MG tablet Take 1 tablet (100 mg total) by mouth daily. 30 tablet 4 Active Active Problems Problem Noted Date Diagnosed Date Acute anemia 01/26/2024 Pyelonephritis 01/24/2024 AKILAH (acute kidney injury) 12/28/2023 Aspiration pneumonia ([facility]) 4 Chest pain 01/14/2019 Primary osteoarthritis of knee 01/14/2019 Benign hypertension 03/05/2018 Vitamin D deficiency 03/05/2018 Family History Medical History Relation Comments Heart Attack Brother Heart Disease Father Hypertension Father Heart Disease Mother Hypertension Mother AAA Sister Relation Status Comments Brother Father Mother Sister Social History Tobacco Use Types Packs/Day Years Used Date Smoking Tobacco: Never Smokeless Tobacco: Never Tobacco Cessation:Counseling Given: Not Answered Alcohol Use Standard Drinks/Week Comments No 0 (1 standard drink = 0.6 oz pur e alcohol) B1300 Health Literacy Answer Date Recor ded How often do you need to hav e someone help you when you read instructions, pamphlets, or other written material from your doctor or pharmacy? Never 01/24/2024 [facility] Utilities Answer Date Recorded In the past 12 months has e [email or web address], [employer], oil, or water [employer] threatened to shut off services in your home? No 01/24/2024 Humiliation, Afraid, Rape, and Kick questionnair e Answer Date Recorded Within the last year, have y ou been afraid of your partner or ex-partner? No 01/24/2024 Within the last year, have y ou been humiliated or emotionally abused in other ways by your partner or ex-partner? No Within the last year, have y ou been kicked, hit, slapped, or otherwise physically hurt by your partner or ex-partner? No 01/24/2024 Within the last year, have y ou been raped or forced to have any kind of sexual activity by your partner or ex-partner? No 01/24/2024 Social Connection and Isolation Panel [NHANES] A nswer Date Recorded In a typical week, how many times do you talk on the phone with family, friends, or neighbors? Once a week 01/24/2024 How often do you get together with friends or re latives? Once a week 01/24/2024 How often do you attend mu-ism or religion serv ices? Never 01/24/2024 Do you belong to any clubs o r organizations such as mu-ism groups, unions, fraternal or athletic groups, or school groups? No 01/24/2024 How often do you attend meet ings of the clubs or organizations you belong to? Never 01/24/2024 Are you , , di vorced, , never , or living with a partner? 01/24/2024 AUDIT-C Answer Date Recorded Q1: How often do you have a drink containing alcohol? Never 01/24/2024 Q2: How many drinks containi ng alcohol do you have on a typical day when you are drinking? Patient does not drink Q3: How often do you have si x or more drinks on one occasion? Never 01/24/2024 Overall Financial Resource Strain (CARDIA) Answe r Date Recorded How hard is it for you to pa y for the very basics like food, housing, medical care, and heating? Not hard at all 01/24/2024 [facility] [place] of Occupat ional Health - Occupational Stress Questionnaire Answer Date Recorded Do you feel stress - tense, restless, nervous, or anxious, or unable to sleep at night because your mind is troubled all the time - these days? Not at all 01/24/2024 Exercise Vital Sign Answer Date Recorde d On average, how many days pe r week do you engage in moderate to strenuous exercise (like a brisk walk)? 0 days 01/24/2024 On average, how many minutes do you engage in exercise at this level? 0 min 01/24/2024 Hunger Vital Sign Answer Date Recorded Within the past 12 months, y ou worried that your food would run out before you got the money to buy more. Never true 01/24/20 Within the past 12 months, t he food you bought just didn't last and you didn't have money to get more. Never true 01/24/2024 PRAPARE - Transportation Answer Date Re corded In the past 12 months, has l ack of transportation kept you from medical appointments or from getting medications? No 01/05 In the past 12 months, has l ack of transportation kept you from meetings, work, or from getting things needed for daily living? No 01/24/2024 Housing Stability Vital Sign Answer Benito e Recorded In the last 12 months, was t here a time when you were not able to pay the mortgage or rent on time? No 01/24/2024 In the past 12 months, how m any times have you moved where you were living? 0 01/24/2024 At any time in the past 12 m [facility], were you homeless or living in a penitentiary (including now)? No 01/24/2024 Comments No Sex and Gender Information Value Date Recorded Sex Assigned at Female 04/28/2024 12:01 AM HEALTHCARE ECONOMICS MANAGER Legal Sex Female 8:07 PM CDT Gender Identity Not on file Sexual Orientation Not on file Last Filed Vital Signs Vital Sign Reading Time Taken Comments Blood Pressure 155/102 04/28/2024 2:30 AM HEALTHCARE ECONOMICS MANAGER Pulse 77 04/28/2024 2:30 AM HEALTHCARE ECONOMICS MANAGER Temperature 36.2 C (97.2 F) 04/28/2024 2:30 AM HEALTHCARE ECONOMICS MANAGER Respiratory Rate 21 04/28/2024 2:30 AM HEALTHCARE ECONOMICS MANAGER Oxygen Saturation 96% 04/28/2024 2:30 AM HEALTHCARE ECONOMICS MANAGER Inhaled Oxygen Concentration - - Weight 72.6 kg (160 lb) 04/27/2024 11:05 PM HEALTHCARE ECONOMICS MANAGER Height 165.1 cm (5' 5) 04/27/2024 11:05 PM HEALTHCARE ECONOMICS MANAGER Body Mass Index 26.63 04/27/2024 11:05 PM HEALTHCARE ECONOMICS MANAGER Plan of Treatment Health Maintenance Due Date Last Done Comments Colorectal Cancer Screening Colonoscopy (10 Years) 1957 Hepatitis C 12/30/1975 DTaP, Tdap and Td Vaccines ( 1 - Tdap) 1976 Pneumococcal Vaccine: 50+ Years (1 of 1 - PCV) 12/30/2007 Zoster Vaccines (1 of 2) 12/30/2007 Mammogram Screening 09/07/2022 09/07/2020, 02/08/2019 Annual Medicare Wellness Visit 2022 Dexa Scan (General) 2022 COVID-19 Vaccine (3 - 2023-2 5 season) 2023 03/08/2021, 02/08/2021 PHQ-2 (Physician [place]) 04/06/2024 RSV Immunization or 60+ Years (1 - 1-dose 75+ series) 2032 Meningococcal B Vaccine Aged Out No l onger eligible based on patient's age to complete this topic Meningococcal Vaccine Aged Out No darling dusty eligible based on patient's age to complete this topic RSV Immunizations Under 20 Months Aged Out No longer eligible b ased on patient's age to complete this topic Procedures Procedure Name Priority Date/Time Associated Diagnosis Comments MG SCREENING W CARRIE JOYA DIGI Routine 02/08/2019 2:39 PM HEALTHCARE ECONOMICS MANAGER Visit for screening mammogram from Last 3 Months or Most Recently Relevant to Health Maintenance Results * MG SCREENING W CARRIE JOYA DIGI (02/08/2019 2:39 PM HEALTHCARE ECONOMICS MANAGER) Anatomical Region Laterality Modality Breast Bilateral Mammography 02/08/2019 2:55 PM HEALTHCARE ECONOMICS MANAGER Narrative 02/08/2019 2:56 PM HEALTHCARE ECONOMICS MANAGER EXAMINATION: MG SCREENING W CARRIE JOYA DIGI WITH TOMOSYNTHESIS AND COMPUTER-AIDED DETECTION (CAD) DATE: 02/08/2019 2:23 PM COMPARISON STUDIES: 03/13/2016, 08/15/2013, 12/24/2010. CLINICAL HISTORY: Encounter for screening mammogram for malignant neoplasm of breast Screening breast examination FINDINGS: Bilateral CC, MLO, 2-D and 3-D acquisitions. Fatty replaced residual breast parenchyma. Similar in appearance and distribution to the previous exams. No evidence of dominant mass, architectural distortion, skin thickening, nipple retraction or suspicious clusters of microcalcifications. Benign calcifications redemonstrated. . CONCLUSION: 1. BI-RADS Category 1 - negative. Annual screening mammography recommended 2. TISSUE TYPE: Category A - The breasts are almost entirely fatty. MQSA BI-RADS Categories: Category 0 - needs additional imaging evaluation. Category 1 - negative. Category 2 - benign findings. Category 3 - probably benign findings, but short interval follow-up is recommended. Category 4 - suspicious abnormality and biopsy should be considered though the lesion may well be benign. Category 5 - highly suggestive of malignancy and appropriate action should be taken. A) A negative report should not delay a biopsy if a dominant or clinically suspicious mass is present. B) Adenosis and dense breasts may obscure an underlying neoplasm. C) Study interpreted with computer aided detection. Voice recognition software utilized. Interpreted By: John Husain, 02/08/2019 2:55 PM Vikas Ham MD MAMMO Final Result from Last 3 Months or Most Recently Relevant to Health Maintenance Insurance [facility] Advance Directives * Full Code (Latest Code Status on File) Date Activated Date Inactivated Comments 01/24/2024 3:26 PM 01/29/2024 5:38 PM * Full Code Date Activated Date Inactivated Comments 12/28/2023 3:38 PM 2023 5:17 PM * Full Code Date Activated Date Inactivated Comments 11/07/2023 7:37 AM 11/09/2023 4:11 PM * Full Code Date Activated Date Inactivated Comments 01/14/2019 4:06 PM 01/15/2019 2:43 PM Care Teams Personal Care Assistant Relationship Specialty [place] [address] [address] [phone] PCP - General FAMILY PRACTICE 01/14/19 [place] [address] [facility] [address] [place] [address] INTERNAL MEDICINE 11/06/23 [place] [address] [facility] [address] [place] [phone] NEUROLOGY 11/06/23 [place] [address] [phone] UROLOGY 11/06/23 Sonia Larson DPM [address] [place] [address] Referring Physician Cigarette Machine Operator - Foot & Ankle Surgery 11/06/23 [place] [address] [facility] [address] [place] [address] OBGYN 11/06/23
--- OUTSIDE RECORDS SUMMARY | 2024-10-11 09:30 | XMS_ITS | Encounter Summary ---
Author Organization [facility] Address [address] [place] [address] Care Team Providers Care Vegetable Scullion Name Role Phone Vikas Ham MD Primary Care Provider [phone] Kurtis Colin MD Unavailable [phone] Tyrone Greenwood MD Unavailable [phone] Joe Joyner MD Unavailable [phone] Sonia Larson DPM Unavailable [phone] Ravinder Thakur MD Unavailable [phone] Encounter Details Date Type Department Care Team (Late st Contact Info) Description 05/25/2024 MyChart Message Enc [facility] Call Center [address] [place] [phone] Stephanie, [facility] Provider [facility] [address] (5000 [address]) Cap Social History Tobacco Use Types Packs/Day Years Used Date Smoking Tobacco: Never Smokeless Tobacco: Never Alcohol Use Standard Drinks/Week Comments No 0 (1 standard drink = 0.6 oz pur e alcohol) B1300 Health Literacy Answer Date Recor ded How often do you need to hav e someone help you when you read instructions, pamphlets, or other written material from your doctor or pharmacy? Never 01/24/2024 [facility] Utilities Answer Date Recorded In the past 12 months has th e electric, gas, oil, or water company threatened to shut off services in your [...] week 01/24/2024 How often do you attend christian or presybeterian serv ices? Never 01/24/2024 Do you belong to any clubs o r organizations such as christian groups, unions, fraternal or athletic groups, or [...] and heating? Not hard at all 01/24/2024 [facility] of Occupat ional Health - Occupational Stress [...] money to buy more. Never true 01/24/20 24 Within the past 12 months, t he [...] any time in the past 12 m [facility], were you homeless or living in a halfway (including now)? No 01/24/2024 Comments No Sex and Gender Information Value Date Recorded Sex Assigned at Female 04/28/2024 12:01 AM BOW STAPLER Legal Sex Female 8:07 PM CDT Gender Identity Not on file Sexual Orientation Not on file documented as of this encounter Functional Status * Are you deaf or do you have serious difficulty hearing Answer Date of Assessment Author Status No 01/29/2024 12:50 PM CDT Evangelista Caal , RN Active * Are you blind or do you have serious difficulty seeing, even when wearing glasses? Answer Date of Assessment Author Status No 01/29/2024 12:50 PM ROMAINET Evangelista Caal , RN Active * Do you have serious difficulty walking or climbing stairs? Answer Date of Assessment Author Status Yes 01/29/2024 12:50 PM Evangelista Newberry , RN Active * Do you have difficulty dressing or bathing? Answer Date of Assessment Author Status No 01/29/2024 12:50 PM Evangelista Newberry , RN Active * Because of a physical, mental, or emotional condition, do you have difficulty doing errands alone such as visiting a doctor's office or shopping? Answer Date of Assessment Author Status No 01/29/2024 12:50 PM Evangeilsta Newberry , RN Active documented as of this encounter Mental Status * Because of a physical, mental, or emotional condition, do you have serious difficulty concentrating, remembering, or making decisions? Answer Entry Date Author Status No 01/29/2024 12:50 PM CDEvangelista King , RN Active documented in this encounter Plan of Treatment Not on file documented as of this encounter Visit Diagnoses Not on filedocumented in this encounter Care Teams Vegetable Scullion Relationship Specialty [place] [address] [address] [facility] [address] [place] [address] PCP - General FAMILY PRACTICE 01/14/19 [place] [address] [facility] [address] [place] [address] INTERNAL MEDICINE 11/06/23 [place] [address] [facility] [address] [place] [address] NEUROLOGY 11/06/23 [place] [address] [facility] [address] [place] [phone] UROLOGY 11/06/23 Sonia Larson DPM [address] [place] [address] Referring Physician Manager Cardiac Cath - Foot & Ankle Surgery 11/06/23 [place] [address] [facility] [address] [place] [address] OBADRIEN 11/06/23 documented as of this encounter
[2024-10-11] MEDS: PERFLUTREN LIPID MICROSPHERES 1.5 ML VIAL DILUTED TO 10 ML TOTAL VOLUME IV PUSH (10:30)
--- NOTE | 2024-10-11 10:40 | IVDEFINITY ---
Prior to administration of IV Definity the patient was educated on the risks and benefits of the imaging enhancing agent including potential adverse side effects. The patient verbalized understanding. Allergies were verified. No exclusion criteria were identified and at least one of the following inclusion criteria were met: 1) physician request, 2) patient technically difficult to image (per the [place] Society of Echocardiography guidelines of two or more segments not discernable within the apical view), or 3) questionable left ventricular function. ?
== END 2024-10-11 09:25 | disposition home or self-care (01) ==
DX: R06.02 Shortness of breath (principal)
CPT/HCPCS: C8929; Q9957